=== PATIENT | male | born 1995 | race Caucasian/White ===

== ENCOUNTER 2022-08-13 20:52 | Emergency (ER) | payer OTHER ==
[~2022-08-13] VITALS: Ht 162.6 cm; Wt 72.6 kg
[2022-08-13 20:52] VITALS: BP 137/93
--- NOTE | 2022-08-13 20:52 | NUR ---
RAFY ELIZONDO TAKEN TO CHAIR B
--- NOTE | 2022-08-13 21:21 | NUR ---
PATIENT BIB [facility] [facility]. PATIENT EXAMINED BY DR. MARES. PATIENT MEDICALLY CLEARED AND RELEASED IN CUSTODY IN STABLE CONDITION. ORIGINAL PRE-BOOK FORM GIVEN TO OFFICER NELIA, #[id number].
== END 2022-08-13 21:21 ==
LOC: MED 20:52
DX: Z02.89 Encounter for other administrative examinations (principal); V49.88XA Car occupant (driver) (passenger) injured in other specified transport accidents, initial encounter; Y93.89 Activity, other specified; Y92.89 Other specified places as the place of occurrence of the external cause; Y99.8 Other external cause status
CPT/HCPCS: 99283